=== PATIENT | male | born 1940 | race Caucasian/White ===

== ENCOUNTER → 2017-04-14 | Outpatient (CLI) | payer OTHER ==
--- NOTE | 2017-04-15 06:14 | PAP/PSG TECHNICIAN REPORT ---
[facility] Field Support Technician Polysomnogram Report Study name: None Report date: 04/15/2017 Study date: 04/14/2017 Referring Physician: Eve MARIE M.D. Name: CARLA MEDINA Interpreting Physician: Batsheva Marie M.D. Date of : 1940 Field Support Technician: Vi Call RPSGT. Sex: Male Age: 77 StudyType: PSG Weight: 327 lbs Height: 77 years, Height 6' 0" BMI: 44.34 Medications: CYTOTEC 200 MCG, SPIRONOLACTONE 25 MG, ATARAX 10 MG, FUROSEMIDE 20 MG, NYSTATIN [id number] UNITS, VIT D3 12295 UNITS, URISTAT 95 MG, PROBIOTIC, FLOMAX 0.4 MG, DIAZEPAM 2 MG, VIT B-12 100 MCG, PANTOPRAZOLE 40 MG, NADOLOL 40 MG, WARFARIN 5 MG, OSTEO BIFLEX Patient History 77 yr-old male here for a baseline/split study. He has had previous sleep testing. He was found to be positive for MICHELLE and started on CPAP treatment. He discontinued use after developing headaches. He is back to assess his MICHELLE and try CPAP again. His [place] scale is 12. The test was started on room air. ETCO2 testing was not utilized during this study. Room 1 Parameters Monitored NPSG: E1-M2, E2-M1, Fp1-M2, Fp2-M1, F3-M2, F4-M2, F4-M1, C3-M2, C4-M2, C4-M1, O1-M2, O2-M2, O2-M1, T3-M2, T4-M1, P3-M2, P4-M1, CHIN1, CHIN2, HR, EKG, Legs, PFLOW, SNOR, FLOW, CFLOW, Tidal Volume, THOR, ABDO, SpO2, PLTH, CPRESS, ETCO2 Wave, ETCO2, pH Sleep Architecture Sleep Stages Time at Lights Off 10:43:55 PM STAGES Time (min.) TST (%) Time at Lights On 5:38:55 AM Wake 243.0 -- Total Recording Time (TRT) 415.00 min. N1 44.5 26 Total Sleep Period (TSP) 380.5 min. N2 126.5 74 Total Sleep Time (TST) 172.0min. N3 0.0 0 Awake Time 243.0 min. REM 1.0 1 Wake after Sleep Onset 221.5 min. Sleep Efficiency (SE) 41 % Sleep Onset Latency (JAELYN) 21.5 min. Number of Stage 1 Shifts None Awakenings 20 Stage Changes 54 Number of REM periods 2 REM 1.0 1 REM Latency 119.5 min. NREM 171.0 99 Body Position Analysis Supine Right Left Side Prone Vertical Total Sleep Time (min.) 0.0 8.0 164.0 172.00 0.0 0.0 Total Sleep Time (%) 0% 5% 95% 100 0% N/A% Total Sleep Time REM (min.) 0.0 0.0 1.0 None 0.0 0.0 Total Sleep Time NREM (min.) 0.0 8.0 163.0 None 0.0 0.0 Intermittent Wake (min.) 0.0 89.4 153.6 None 0.0 0.0 Total Sleep Period (%) 0% None None None None None Arousals Myoclonus (PLM) * Events Count Index Events Count Index Spontaneous 22 8 Events Awake (PLMW) 242 59.8 Respiratory 11 4.5 Events Asleep w/ Arousal (PLMA) 2 0.7 PLM 2 1 Events Asleep w/o Arousal (PLMS) 78 27.2 Snoring 10 3 Total Asleep 80 27.9 Total 43 15 Total 322 47 Respiratory Analysis * CA OA MA CH H RERA Total Count 0 0 0 0 39 6 39 Index 0.0 0.0 0.0 0 13.6 2 15.7 Mean Duration 0.0 0.0 0.0 0.00 17.9 18.4 17.9 Longest Duration 0.0 0.0 0.0 0.00 0.0 25.0 32.4 Respiratory Event Summary Total Supine ~Supine Right Left Prone REM NREM Apneas Count 0 N/A 0 0 0 N/A 0 0 Index 0.0 N/A 0 0.0 0.0 N/A 0 0 Hypopneas (4% Desat) Count 39 N/A 39 1 38 N/A 1 38 Index 13.6 N/A 14 7.5 13.9 N/A 60.0 13.3 Apneas & All Hypopneas Count 39 N/A 39 1 38 N/A 1 38 Index 13.6 N/A 14 8 14 N/A 60.0 13.3 Respiratory Events (Machine Tool Electrician+All Hyp+RERA) Count 39 N/A 45 1 44 N/A 1 38 Index 15.7 N/A 16 7.5 16.1 N/A 120.0 15.1 Respiratory Related Arousal Count 11 N/A 13 1 12 N/A 2 11 Index 4.5 N/A 5 8 4 N/A 120 4 Snoring Analysis Supine Right Left Prone REM NREM Total Snore duration 6.1 min Snores count N/A 2 301 N/A 3 300 303 Snore mean duration 1.2 Sec Snores index N/A 15 110 N/A 180.0 105.3 105.7 TST with snoring (%) 3.6% Desaturation Event Summary: Minimum %SpO2 Event Count Mean/Min/Max Duration(sec.) Desaturation Index % Time In Bed > 90 11 33.3 / 13.5 / 58.8 84.8 2.1 86 - 90 70 24.9 / 10.5 / 59.0 17.3 65.8 81 - 85 30 19.5 / 6.0 / 34.3 15.4 31.7 76 - 80 1 6.0 / 6.0 / 6.0 79.6 0.2 71 - 75 2 11.4 / 8.0 / 14.8 223.3 0.1 66 - 70 0 N/A 0.0 0.0 61 - 65 0 N/A 0.0 0.0 56 - 60 0 N/A 0.0 0.0 51 - 55 0 N/A 0.0 0.0 < 50 0 N/A 0.0 0.0 Total REM NREM Awake <50% 0.0 min. 0.0 min. 0.0 min. 0.0 min. 51 - 60% 0.0 min. 0.0 min. 0.0 min. 0.0 min. 61 - 70% 0.0 min. 0.0 min. 0.0 min. 0.0 min. 71 - 80% 1.3 min. 0.0 min. 0.0 min. 1.3 min. 81 - 90% 359.2 min. 0.7 min. 170.3 min. 188.2 min. 91 - 100% 7.8 min. 0.0 min. 0.2 min. 7.6 min. Average 86 85 85 87 Minimum SpO2 71 84 81 71 Desaturation Event Index 11.9 60.0 16.5 8.4 # Desat. Events below 89% 82 1 47 34 Time(%) with Saturation below 89% 84.8 0.2 44.7 39.9 Time(min.) with Saturation below 89% 312.1 0.7 164.5 146.9 Time (mins) REM (mins) NREM (mins) % of TST SpO2 Below 90% 48 1 N47 99.0 SpO2 Below 88% 18 0 0 89 Heart Rate Analysis Min (bpm) Max (bpm) Average (bpm) Awake 49 281 55 NREM 50 57 53 REM 50 53 52 Overall 50 57 53 Supplemental O2 Values Minimum O2 level: None Value Start Time End Time Field Support Technician Comments Mr. Medina slept in the right and left positions. No cardiac arrhythmias were noted. PLMs were noted. No bruxism noted. Snoring was noted and scored as a 2 on a scale of 1 through 5. (0=no snoring, 5=snoring loud enough to be heard through a closed door or down the kaba way) He did not meet specific Split-Night criteria during the diagnostic portion of this study. He awoke to use the restroom eight times during the night. Mr. Medina stated that he slept poorly and had to use the restroom a little more than lately. The final report will be interpreted and signed by a sleep physician. The completed physician report will then be placed in the patient medical record. Therapy (cm H2O) 0 TIB (min.) 415.0 TST (min.) 172.0 Sleep Onset (min.) 21.5 REM Onset From Sleep (min.) 119.5 Sleep Efficiency % 41 Wakefulness (%) 59 Wakefulness (min.) 243.0 NREM 1 (%) 26 NREM 1 (min.) 44.5 NREM 2 (%) 74 NREM 2 (min.) 126.5 NREM 3 (%) 0 NREM 3 (min.) 0.0 REM (%) 1 REM (min.) 1.0 # Arousals 43 Arousal Index 15 # Snore 303 Snore Index 105.7 AHI 13.6 AHI Supine N/A AHI Non-Supine 14 NREM AHI 13.3 REM AHI 60.0 RDI 15.7 # Obstructive Apnea 0 # Central Apnea 0 # Mixed Apnea 0 # Hypopneas 39 RERAs 6 Total Respiratory Events 47 Time Below SpO2 89% (min.) 165.2 Mean NREM SpO2 (%) 85 Mean REM SpO2 (%) 85 Mean Sleep SpO2 (%) 85 Min NREM SpO2 (%) 81 Min REM SpO2 (%) 84 Position Supine (min.) 0.0 Position Non-supine (min.) 172.0 LM Index Sleep 27.9 LM Index NREM 27.4 LM Index REM 120.0 Mean Heart Rate (bpm) 53 Min Heart Rate (bpm) 50
--- NOTE | 2017-05-01 16:57 | POLYSOMNOGRAPH REPORT ---
REFERRING PERSON: Dr. George Marie. SUPERVISOR HISTOLOGY: Vi Call. Mr. Medina is a 77-year-old male sent for a possible split night sleep study. He has had previous sleep testing and been on CPAP therapy for obstructive sleep apnea. He discontinued it however, after developing headaches. He is willing to try CPAP again if necessary. His [place] sleepiness scale score on the evening of this study is 12, BMI is 44.34. Following the technical and digital specifications of the [employer] [employer] (AASM) a standard diagnostic polysomnogram was performed monitoring EEG, EOG, EMG (chin and leg deviations), oxygen saturation, body position, digital video, respiratory effort and airflow. The sleep Stage and event scoring was based on the AASM Manual for the Scoring of Sleep and Associated Events 2007 edition. Apneas are defined as a drop in the peak thermal sensor excursion by >90% of baseline for at least 10 seconds. Hypopneas were scored using the 4% oxygen desaturation rule (4A-Medicare) and a decrease in the nasal pressure excursions by >30% of baseline for at least 10 seconds. Respiratory effort-related arousal (RERA's) is defined as a sequence of breaths lasting at least 10 seconds characterized by increasing respiratory effort or flattening of the nasal pressure waveform leading to an arousal from sleep when the sequence of breaths does not meet criteria for an apnea or hypopnea. Apnea Hypopnea index (AHI) is defined as the number of apneas and hypopneas occurring in an hour of sleep. Respiratory disturbance index (RDI) is defined as the number of apneas, hypopneas, and RERA's occurring in an hour of sleep. Mr. Medina's total sleep period time was 380.5 minutes. Total sleep time was 172 minutes. Sleep efficiency was 41%. Latency to sleep onset was 21.5 minutes with wake after sleep onset of 221.5 minutes. Total non-REM sleep time was 171 minutes. He spent 26% of that time in N1 sleep, 74% in N2 sleep and no time in N3 sleep. REM latency was 119.5 minutes. Total REM sleep time was only 1 minute or 1% of total sleep time. There were 43 cortical arousals from sleep. Twenty two of these arousals were spontaneous, 11 were due to respiratory events, 2 due to periodic limb movements of sleep and 10 were due to snoring. There were 80 periodic limb movements noted on this test. Limb movement index was 27.9 and limb movement with arousal index was 0.7. There were no central, obstructive or mixed apneas on this test. There were 39 hypopneas and 6 RERAs. Apnea-hypopnea index was 13.6 consistent with mild sleep apnea. REM AHI was 60. There were 303 snoring events recorded. Total sleep time with snoring was 3.6%. Mean saturation was low at 86% and desaturation to 71% on this test. Saturations were below 89% for 312.1 minutes of sleep time. This is very significant nocturnal hypoxemia. There was no cardiac ectopy noted on this study. Mr. Medina's heart rates ranged from a low of 50 beats per minute to a high of 57 beats per minute during sleep. IMPRESSION AND PLAN: A 77-year-old male with mild obstructive sleep apnea and very significant nocturnal hypoxemia on this sleep study. 1. This patient may benefit from positive airway pressure therapy and he should return to the sleep lab for a full night titration and then start on equipment at home based on those results. 2. Given these baseline results, he may require oxygen therapy with his CPAP to eliminate his nocturnal hypoxemia.
== END | disposition home or self-care (01) ==
LOC: C.NEUR 20:00
PROVIDERS: ATTEND Family Medicine
DX: G47.33 Obstructive sleep apnea (adult) (pediatric) (principal); R09.02 Hypoxemia; R35.1 Nocturia

== ENCOUNTER → 2017-04-24 | Outpatient (CLI) | payer OTHER ==
--- NOTE | 2017-04-25 06:37 | PAP/PSG TECHNICIAN REPORT ---
[facility] Obstetrics Tech Polysomnogram Report Study name: None Report date: 04/25/2017 Study date: 04/24/2017 Referring Physician: Eve MARIE M.D. Name: CARLA MEDINA Interpreting Physician: Batsheva Marie M.D. Date of : 1940 Obstetrics Tech: Vi Call RPSGT. Sex: Male Age: 77 Study Type: PSG PAP Weight: 327 lbs Height: 77 years, Height 6' 0" BMI: 44.34 Medications: CYTOTEC 200 MCG, SPIRONOLACTONE 25 MG, ATARAX 10 MG, FUROSEMIDE 20 MG, NYSTATIN [id number] UNITS, VIT D3 55338 UNITS, URISTAT 95 MG, PROBIOTIC, FLOMAX 0.4 MG, DIAZEPAM 2 MG, VIT B-12 100 MCG, PANTOPRAZOLE 40 MG, NADOLOL 40 MG, WARFARIN 5 MG, OSTEO BIFLEX Patient History 77 yr-old male here for a new titration sleep study. He had a PSG on 04/14/17 and had an AHI of 13.6. His [place] scale is 12. The test was started on room air. ETCO2 testing was not utilized during this study. Room 1 Parameters Monitored NPSG: E1-M2, E2-M1, Fp1-M2, Fp2-M1, F3-M2, F4-M2, F4-M1, C3-M2, C4-M2, C4-M1, O1-M2, O2-M2, O2-M1, T3-M2, T4-M1, P3-M2, P4-M1, CHIN1, CHIN2, HR, EKG, Legs, PFLOW, SNOR, FLOW, CFLOW, Tidal Volume, THOR, ABDO, SpO2, PLTH, CPRESS, ETCO2 Wave, ETCO2, pH Sleep Architecture Sleep Stages Time at Lights Off 10:36:12 PM STAGES Time (min.) TST (%) Time at Lights On 5:16:42 AM Wake 174.5 -- Total Recording Time (TRT) 400.50 min. N1 36.0 16 Total Sleep Period (TSP) 365.5 min. N2 168.0 74 Total Sleep Time (TST) 226.0min. N3 0.0 0 Awake Time 174.5 min. REM 22.0 10 Wake after Sleep Onset 148.0 min. Sleep Efficiency (SE) 56 % Sleep Onset Latency (JAELYN) 26.5 min. Number of Stage 1 Shifts None Awakenings 19 Stage Changes 63 Number of REM periods 7 REM 22.0 10 REM Latency 165.5 min. NREM 204.0 90 Body Position Analysis Supine Right Left Side Prone Vertical Total Sleep Time (min.) 0.0 0.4 225.6 226.00 0.0 0.0 Total Sleep Time (%) 0% 0% 100% 100 0% N/A% Total Sleep Time REM (min.) 0.0 0.0 22.0 None 0.0 0.0 Total Sleep Time NREM (min.) 0.0 0.4 203.6 None 0.0 0.0 Intermittent Wake (min.) 0.0 26.5 148.0 None 0.0 0.0 Total Sleep Period (%) 0% None None None None None Arousals Myoclonus (PLM) * Events Count Index Events Count Index Spontaneous 27 7 Events Awake (PLMW) 166 57.1 Respiratory 4 1.3 Events Asleep w/ Arousal (PLMA) 5 1.3 PLM 5 1 Events Asleep w/o Arousal (PLMS) 191 50.7 Snoring 0 0 Total Asleep 196 52.0 Total 36 10 Total 362 54 Respiratory Analysis * CA OA MA CH H RERA Total Count 0 1 0 0 16 0 17 Index 0.0 0.3 0.0 0 4.2 0 4.5 Mean Duration 0.0 20.3 0.0 0.00 20.0 0.0 20.0 Longest Duration 0.0 20.3 0.0 0.00 0.0 0.0 31.6 Respiratory Event Summary Total Supine ~Supine Right Left Prone REM NREM Apneas Count 1 N/A 1 0 1 N/A 0 1 Index 0.3 N/A 0 0.0 0.3 N/A 0 0 Hypopneas (4% Desat) Count 16 N/A 16 0 16 N/A 6 10 Index 4.2 N/A 4 0.0 4.3 N/A 16.4 2.9 Apneas & All Hypopneas Count 17 N/A 17 0 17 N/A 6 11 Index 4.5 N/A 5 0 5 N/A 16.4 3.2 Respiratory Events (Financial Aid+All Hyp+RERA) Count 17 N/A 17 0 17 N/A 6 11 Index 4.5 N/A 5 0.0 4.5 N/A 16.4 3.2 Respiratory Related Arousal Count 4 N/A 5 0 5 N/A 1 4 Index 1.3 N/A 1 0 1 N/A 3 1 Snoring Analysis Supine Right Left Prone REM NREM Total Snore duration 0.7 min Snores count N/A 0 24 N/A 4 20 24 Snore mean duration 1.8 Sec Snores index N/A 0 6 N/A 10.9 5.9 6.4 TST with snoring (%) 0.3% Desaturation Event Summary: Minimum %SpO2 Event Count Mean/Min/Max Duration(sec.) Desaturation Index % Time In Bed > 90 9 37.5 / 12.8 / 57.8 12.2 11.9 86 - 90 27 34.3 / 9.3 / 55.0 6.3 69.4 81 - 85 7 27.5 / 10.3 / 51.5 6.3 18.0 76 - 80 0 N/A 0.0 0.6 71 - 75 0 N/A 0.0 0.1 66 - 70 0 N/A 0.0 0.0 61 - 65 0 N/A 0.0 0.0 56 - 60 0 N/A 0.0 0.0 51 - 55 0 N/A 0.0 0.0 < 50 0 N/A 0.0 0.0 Total REM NREM Awake <50% 0.0 min. 0.0 min. 0.0 min. 0.0 min. 51 - 60% 0.0 min. 0.0 min. 0.0 min. 0.0 min. 61 - 70% 0.0 min. 0.0 min. 0.0 min. 0.0 min. 71 - 80% 2.6 min. 1.4 min. 0.4 min. 0.9 min. 81 - 90% 325.7 min. 17.6 min. 188.0 min. 120.1 min. 91 - 100% 44.3 min. 3.0 min. 15.3 min. 26.0 min. Average 88 87 87 89 Minimum SpO2 74 77 77 74 Desaturation Event Index 4.9 19.1 4.7 3.8 # Desat. Events below 89% 32 7 14 11 Time(%) with Saturation below 89% 66.8 3.8 44.2 18.8 Time(min.) with Saturation below 89% 249.1 14.3 164.9 69.9 Time (mins) REM (mins) NREM (mins) % of TST SpO2 Below 90% 22 7 N15 86.3 SpO2 Below 88% 12 0 0 69 Heart Rate Analysis Min (bpm) Max (bpm) Average (bpm) Awake 33 196 55 NREM 48 69 52 REM 48 56 52 Overall 48 69 52 Supplemental O2 Values Minimum O2 level: None Value Start Time End Time Obstetrics Tech Comments Mr. Medina slept in the right and left positions. No cardiac arrhythmias were noted. PLMs were noted. No bruxism noted. CPAP was initiated at +4 CMH2O and up-titrated to a level of +8 CMH2O, Cflex 2. After he had been on a pressure of 8 CMH2O for 121.1 minutes, he had spent 59.7 minutes under an O2 saturation of 89%. His AHI at the time was 1.7. At that time, 1 LPM of O2 was added. Later, he had spent an additional 10.3 minutes under an O2 saturation of 89%, so another LPM of O2 was added. His AHI was still under 10. He ended up on a total of 2 LPM of O2. An Diya View full face mask from [employer] was used during titration He awoke to use the restroom seven times during the night. He woke up and a little before 5:30 stated that he was ready to get up. Mr. Medina stated that he had to use the restroom more than usual. The final report will be interpreted and signed by a sleep physician. The completed physician report will then be placed in the patient medical record. Therapy Event: Therapy (cm H20) 4 6 8 Total Time at Pressure (min.) 92.6 101.8 206.1 TST at Pressure (min.) 38.6 71.3 116.1 # Periods 1 1 1 Sleep Onset (min.) 26.5 0.0 0.0 REM Onset (min.) N/A 99.4 0.0 Sleep Efficiency % 41 70 56 Wakefulness (%) 58.3 30.0 43.7 Wakefulness (min.) 54.0 30.5 90.0 NREM 1 (%) 6.5 7.4 10.9 NREM 1 (min.) 6.0 7.5 22.5 NREM 2 (%) 35.2 60.4 35.9 NREM 2 (min.) 32.6 61.4 74.0 NREM 3 (%) 0.0 0.0 0.0 NREM 3 (min.) 0.0 0.0 0.0 REM (%) 0.0 2.3 9.5 REM (min.) 0.0 2.4 19.6 # Arousals 4 10 22 Arousal Index 6.2 8.4 11.4 # Snore 4 13 7 Snore Index 6.2 10.9 3.6 AHI 7.8 4.2 3.6 AHI Supine N/A N/A N/A AHI Non-Supine 7.8 4.2 3.6 NREM AHI 7.8 2.6 1.9 REM AHI N/A 50.7 12.2 RDI 7.8 4.2 3.6 # Obstructive 1 0 0 # Central Ap 0 0 0 # Mixed 0 0 0 # Hypopneas 4 5 7 RERAS 0 0 0 Total Respiratory Events 5 5 7 Time Below SpO2 89.00% (min.) 37.8 67.1 74.4 Mean NREM SpO2 (%) 86 86 88 Mean REM SpO2 (%) N/A 84 87 Mean Sleep SpO2 (%) 86 86 88 Min NREM SpO2 (%) 82 77 84 Min REM SpO2 (%) N/A 78 77 Position Supine (min.) 0.0 0.0 0.0 Position Non-supine (min.) 38.6 71.3 116.1 LM Index Sleep 60.7 84.1 29.4 LM Index NREM 60.7 87.0 19.9 LM Index REM N/A 0.0 76.4 Mean Heart Rate (bpm) 54 52 51 Min Heart Rate (bpm) 52 50 48 CPAP REPORT Therapy Detail Time / Page # Comment CPAP 4 cm H2O Full Face Mask Flex Pressure Relief Humidifier on 10:30:15 PM / pg. 219 CPAP 6 cm H2O Full Face Mask Flex Pressure Relief Humidifier on 12:08:45 AM / pg. 416 INCREASED FOR HYPOPNEAS CPAP 8 cm H2O Full Face Mask Flex Pressure Relief Humidifier on 1:50:34 AM / pg. 619 INCREASED FOR HYPOPNEAS IN REM CPAP 8 cm H2O Full Face Mask Flex Pressure Relief Humidifier on Oxygen 1.0 lpm 3:54:06 AM / pg. 866 HE HAS BEEN ON A PRESSURE OF 8 CMH2O FOR 121.1 MIN, HIS AHI IS 1.7, AND HE SPENT 59.7 MIN UNDER AN O2 SATURATION OF 89%. ADDING LPM OF O2 CPAP 8 cm H2O Full Face Mask Flex Pressure Relief Humidifier on Oxygen 2.0 lpm 4:44:02 AM / pg. 966 HE HAS SPENT ANOTHER 10.3 MIN UNDER A SATURATION OF 89%. ADDING ANOTHER LPM OF O2
--- NOTE | 2017-05-07 21:16 | POLYSOMNOGRAPH REPORT ---
REFERRING PERSON: Dr. George Marie. SPINE NURSE: iV Call. Mr. Medina is a 77-year-old male sent for new CPAP titration study. He had a PSG on 04/14/2017 which showed an AHI of 13.6. His [place] sleepiness scale score on the evening of this study is 12, BMI is 44.34. Following the technical and digital specifications of the [place] [employer] (AASM) a standard diagnostic polysomnogram was performed monitoring EEG, EOG, EMG (chin and leg deviations), oxygen saturation, body position, digital video, respiratory effort and airflow. The sleep Stage and event scoring was based on the AASM Manual for the Scoring of Sleep and Associated Events 2007 edition. Apneas are defined as a drop in the peak thermal sensor excursion by >90% of baseline for at least 10 seconds. Hypopneas were scored using the 4% oxygen desaturation rule (4A-Medicare) and a decrease in the nasal pressure excursions by >30% of baseline for at least 10 seconds. Respiratory effort-related arousal (RERA's) is defined as a sequence of breaths lasting at least 10 seconds characterized by increasing respiratory effort or flattening of the nasal pressure waveform leading to an arousal from sleep when the sequence of breaths does not meet criteria for an apnea or hypopnea. Apnea Hypopnea index (AHI) is defined as the number of apneas and hypopneas occurring in an hour of sleep. Respiratory disturbance index (RDI) is defined as the number of apneas, hypopneas, and RERA's occurring in an hour of sleep. Mr. Helmss total sleep period time was 365.5 minutes. Total sleep time was 226 minutes. Sleep efficiency was 56%. Latency to sleep onset was 26.5 minutes. Wake after sleep onset was 148 minutes. Total non-REM sleep time was 204 minutes. He spent 16% of that time in N1 sleep, 74% in N2 sleep and no time in N3 sleep. REM latency was 165.5 minutes. Total REM sleep time was 22 minutes or 10% of total sleep time. There were 36 cortical arousals from sleep. Five of these arousals were due to periodic limb movements of sleep, 4 were due to respiratory events, and 27 were spontaneous. There were 196 periodic limb movements noted on this test. Limb movement index was 52.0. Limb movement with arousal index was 1.3. There were no central, 1 obstructive and no mixed apnea on this test. Apnea-hypopnea index was 4.5. There were 24 snoring events recorded. Total sleep time with snoring was 0.3%. Mean saturation was low at 88% with desaturations to 74%. Saturations were less than 89% for 249.1 minutes of recorded time. There was no cardiac ectopy noted on this study. Mr. Medina's heart rate ranged from a low of 48 beats per minute to a high of 69 beats per minute. As stated above, this was a CPAP titration study. Mr. Medina was titrated from a CPAP pressure of 4 to a CPAP pressure of 8. Increasing pressures were needed to prevent apneas, hypopneas and arousals. On a pressure of 8, he was observed for 116.1 minutes of recorded time. AHI and RDI on this pressure were both 3.6. However, his saturations remained less than 89% for at least 60 minutes of sleep time. Therefore, 1 liter of oxygen was started and his saturations remained less than 89 for 10.3 minutes and a second liter of oxygen was added. He used an Diya view full facemask by [employer] for his titration. IMPRESSION AND PLAN: 1. Successful CPAP titration study in this patient with nocturnal hypoxemia as well as apnea. I would recommend that this patient be started on CPAP at a pressure of 8. A download from his machine can be reviewed in 1 month both to check compliance as well as apnea-hypopnea index and further pressure adjustments can occur at that time. This study was limited by the lack of supine REM sleep at a pressure of 8. 2. Additionally, 2 liters of supplemental oxygen should be added to CPAP for hypoxemia despite adequate treatment of sleep-disordered breathing.
== END | disposition home or self-care (01) ==
LOC: C.NEUR 20:00
PROVIDERS: ATTEND Family Medicine
DX: G47.33 Obstructive sleep apnea (adult) (pediatric) (principal); R09.02 Hypoxemia; R35.1 Nocturia